=== PATIENT | female | born 1940 | race Caucasian/White ===

== ENCOUNTER 2023-12-26 15:28 | Emergency (ER) | payer MEDICARE, SELFPAY ==
[2023-12-26 15:30] VITALS: BP 158/63; BMI 30.1
--- NOTE | 2023-12-26 15:46 | ED.GENMED ---
History of Present Illness
<Erika Thomas PA-C - Last Filed: 12/26/23 19:38>
General
Chief Complaint: Fall
Source: patient
Exam Limitations: none
Time Seen by Provider: 12/26/23 15:36
Nursing documentation reviewed up to this point in time: agreed with
History of Present Illness
History of Present Illness:
This is a 83 y/o female with a past medical history of hypertension, hyperlipidemia, chronic renal failure, anxiety, depression, Alzheimer's dementia present emergency department today with concerns of a fall and issue with her midline. Patient
reports that this morning, she is going to the bathroom and she slipped on water and fell down onto her bottom. Patient reports that aides at [facility] helped her up. Patient currently uses a walker and a wheelchair at baseline due to her
recent knee surgery 2 weeks ago. Of note, patient has a PICC line in place to receive antibiotics for septic arthritis. Staff also noted that her PICC line was not flushing and was clogging when IV antibiotics were trying to be administered.
Patient did not get her dose of IV antibiotics today. I spoke to daughter on the phone who notes that patient has dementia and states that also they have been having a hard time controlling her pain with her persistent knee pain as a recent.
Patient is on tramadol every 5 hours for pain. Daughter concerned about her ongoing pain management plan.
Review of Systems
<Erika Thomas PA-C - Last Filed: 12/26/23 19:38>
Review of Systems
All Other Systems: ROS reviewed and negative except as documented in HPI and ROS
Phy Exam
<Erika Thomas PA-C - Last Filed: 12/26/23 19:38>
Physical Exam
Physical Exam:
General: Patient is well appearing and in no acute distress; non-toxic
Skin: Warm and dry, surgical scar noted over left knee.
Head: Normocephalic, atraumatic, no palpable scalp hematomas
Eyes: Sclera non-icteric. EOMs intact.
Neck: Patient is full range of motion of cervical spine, no tenderness palpation of the cervical spine
Cardiac: Regular rate
Peripheral Vascular: No lower extremity swelling or edema. 2+ results pedis and posterior tibial pulses bilaterally
Pulm: Normal respiratory effort
Musculoskeletal: Left knee pain with knee extension and flexion. No hip pain with passive internal/external rotation bilaterally. No tenderness palpation of the thoracic/lumbar spine. No sacral tenderness palpation. No areas of ecchymosis, no
palpable hematomas
Neuro: CN II-XII intact, no focal neurologic deficits.
Psychiatric: Appropriate mood and affect.
Course
<Erika Thomas PA-C - Last Filed: 12/26/23 19:38>
Orders/Labs/Results
Orders:
Orders
12/26/23 16:33
Acetaminophen [Tylenol] 650 mg PO NOW STA
12/26/23 18:34
Sacrum/Coccyx 2 View CR [CR Sacrum/coccyx Min 2 View] Urgent
Comment:
Reason For Exam: sacral pain following fall
12/26/23 18:59
Tramadol HCl [Ultram] 25 mg PO NOW STA
12/26/23 19:10
Tramadol HCl [Ultram] 50 mg PO NOW STA
Vital Signs
Initial and Last Documented VS:
Initial Vital Signs
Temp Pulse Resp BP Pulse Ox
98.7 F 60 18 158/63 99
12/26/23 15:30 12/26/23 15:30 12/26/23 15:30 12/26/23 15:30 12/26/23 15:30
Last Documented Vital Signs
Temp Pulse Resp BP Pulse Ox
98.7 F 62 16 166/72 99
12/26/23 15:30 12/26/23 19:30 12/26/23 19:30 12/26/23 18:00 12/26/23 19:36
<Jensen Chávez DO - Last Filed: 12/26/23 19:42>
Orders/Labs/Results
Orders:
Orders
12/26/23 16:33
Acetaminophen [Tylenol] 650 mg PO NOW STA
12/26/23 18:34
Sacrum/Coccyx 2 View CR [CR Sacrum/coccyx Min 2 View] Urgent
Comment:
Reason For Exam: sacral pain following fall
12/26/23 18:59
Tramadol HCl [Ultram] 25 mg PO NOW STA
12/26/23 19:10
Tramadol HCl [Ultram] 50 mg PO NOW STA
Vital Signs
Initial and Last Documented VS:
Initial Vital Signs
Temp Pulse Resp BP Pulse Ox
98.7 F 60 18 158/63 99
12/26/23 15:30 12/26/23 15:30 12/26/23 15:30 12/26/23 15:30 12/26/23 15:30
Last Documented Vital Signs
Temp Pulse Resp BP Pulse Ox
98.7 F 62 16 166/72 99
12/26/23 15:30 12/26/23 19:30 12/26/23 19:30 12/26/23 18:00 12/26/23 19:36
<Erika Thomas PA-C - Last Filed: 12/26/23 19:38>
MDM/Problems Addressed
Differential Diagnosis Includes:
Differentials include sacral fracture, coccyx fracture, PICC line clot, sacral contusion,
MDM/Problems Addressed:
Fall, PICC line issue:
This is a 83 y/o female with a past medical history of hypertension, hyperlipidemia, chronic renal failure, anxiety, depression, Alzheimer's dementia present emergency department today with concerns of a fall and issue with her midline. Patient
reports that this morning, she is going to the bathroom and she slipped on water and fell down onto her bottom. Patient reports that aides at [facility] helped her up. Patient currently uses a walker and a wheelchair at baseline due to her
recent knee surgery 2 weeks ago. On exam, she is very well-appearing, she is a surgical scar noted to the left knee. She is afebrile . x-ray of the sacrum and coccyx was obtained which was negative for any acute fracture or dislocation. Patient
is requesting her scheduled dose of tramadol, this was given. She was seen by IV team who evaluated her PICC line and that is able to flush without difficulty. Patient requesting to go home, patient stable for discharge.
Chronic conditions affecting care:
Alzheimer's dementia, hypertension, hyperlipidemia, GERD, chronic renal failure
<Erika Thomas PA-C - Last Filed: 12/26/23 19:38>
*Pulse Oximetry
Patient hypoxic: no
*Critical Care Note
Total Time (30-74mins, 75-104mins- exclusive of procedures): Not Applicable
Data Reviewed
Review of Other/Old Records Reveals: Records (No previous ER physician documentation to review) and Discharge Summary (No previous discharge summaries in [facility] to review)
Source: patient and records
<Erika Thomas PA-C - Last Filed: 12/26/23 19:38>
Patient Management
Escalation/DeEscalation of care consider admission/obs:
Patient stable for discharge, reviewed case with my attending Dr. Chávez
ED Attending Note
<Erika Thomas PA-C - Last Filed: 12/26/23 19:38>
-
Portions of this chart may have been created with voice recognition software.� Occasional wrong word or��sound alike� substitutions may have occurred due to the inherent limitations of voice recognition software.
<Jensen Chávez DO - Last Filed: 12/26/23 19:42>
ED Attending Note
Patient seen and examined by attending physician: Yes
I performed the substantive portion of visit, reviewed & personally made and approve the management plan that is documented in note by myself or GREGORY.: Yes
ED Attending Note:
83-year-old female with history of dementia who presents after she had a fall to her buttocks earlier and had some complaint of some pain. She also concerned because the right midline IV was not working well. On my evaluation patient offers no
complaints. Family member at her bedside does reveal that she had complained of some buttocks pain. No head strike. No fevers. Exam: Awake and alert, slightly confused, left lower extremity has a midline knee incision with ming intact. There
is no redness or drainage. There is moderate edema throughout both legs. Assessment and plan: Midline now flushable. No gross evidence of major injury
Discharge Plan
Departure
Patient Disposition: Home (Routine Discharge)
Date of Disposition: 12/26/23
Time of Disposition: 19:24
Patient with high blood pressure during this ER visit?: Yes
Condition: Good
Discharge Problem:
Fall, PIC line (peripherally inserted central catheter) flush
Instructions: Peripherally-Inserted Central Catheter, BLOOD PRESSURE
Referrals:
Aly Guaman MD [Active] - Call in 1-3 days for appt
Mallory Wayne MD [Family Provider] -
Activity Restrictions/Additional Instructions:
Your midline flushes well. There is no obstruction in the line or signs of infection.
Your x-ray did not show any evidence of fracture.
Please return to the emergency department should you experience chest pain, shortness of breath, dizziness, lightheadedness, intractable vomiting, abdominal pain, red rash on your skin, difficulty speaking, or any other signs or symptoms concerning
to you.
Please follow-up with your primary care provider.
Interventions
Interventions:
*Risk Screen - Suicide Last Done: 12/26/23 15:37
*General Assessment Last Done: 12/26/23 15:37
*Neglect/Abuse Screening Last Done: 12/26/23 15:37
*ED COVID-19 Vaccine History Last Done: 12/26/23 15:37
ED-Musculoskeletal Assessment Last Done: 12/26/23 16:18
ED- Neurological Assessment Last Done: 12/26/23 16:18
ED-Skin Assessment Last Done: 12/26/23 16:18
Discharge Date and Time
Print Language: JAPANESE
[2023-12-26] MEDS: TYLENOL 650 MG PO (16:51)
[2023-12-26 17:00] VITALS: BP 153/70
--- NOTE | 2023-12-26 17:12 | VATNOTE ---
Called to Assess right PICC line. Patient has a midline placed at [facility]. Midline flushes easily with no blood return, which is not unusual for a midline to have no blood return.Midline is OK to use.
[2023-12-26 18:00] VITALS: BP 166/72
[2023-12-26] MEDS: ULTRAM 50 MG PO (19:15)
[2023-12-26 20:00] VITALS: BP 138/55
== END 2023-12-26 21:13 | disposition home or self-care (01) ==
LOC: EMR 15:28
PROVIDERS: EMERGENCY PHYSICIAN Emergency Medicine; FAMILY PHYSICIAN Internal Medicine Geriatric Medicine
DX: M25.569 Pain in unspecified knee (principal); W19.XXXA Unspecified fall, initial encounter; E78.00 Pure hypercholesterolemia, unspecified; F02.80 Dementia in other diseases classified elsewhere, unspecified severity, without behavioral disturbance, psychotic disturbance, mood disturbance, and anxiety; G30.9 Alzheimer's disease, unspecified; I12.9 Hypertensive chronic kidney disease with stage 1 through stage 4 chronic kidney disease, or unspecified chronic kidney disease; N18.9 Chronic kidney disease, unspecified; K21.9 Gastro-esophageal reflux disease without esophagitis
CPT/HCPCS: 99283; 72220